=== PATIENT | female | born 1985 | race Caucasian/White ===

== ENCOUNTER 2016-04-23 23:42 | Emergency (ER) | payer OTHER ==
[~2016-04-23] VITALS: Ht 175.3 cm; Wt 119.9 kg
[~2016-04-23 23:42] MED LIST: AMBIEN10 MG PO; BACTRIM,SEPT1 TABLET PO; BUSPAR10 MG PO; CEFTIN500 MG PO; CEPHALEXIN500 MG PO; CIPRO500 MG PO; DIFLUCAN100 MG PO; DIFLUCAN150 MG PO; FIORICET 50-301 EACH PO; FIORICET,ESG1 TABLET PO; Fioricet; HYDROCODON-ACE1 EAC7 PO; HYDROXYZINE HCL50 MG PO; HYDROXYZINE PAM50 MG PO; KEFLEX500 MG PO; KLONOPIN1 MG PO; LAMICTAL25 MG PO; MACROBID100 MG PO; METHADONE10 MG PO; METHADONE10 MG/1 M1 PO; METHADONE5 MG PO; NEURONTIN100 MG PO; ONE-A-DAY ESSE1 EAC1 PO; PERCOCET 5/31 TABLET PO; PYRIDIUM100 MG PO; REGLAN10 MG PO; RITALIN5 MG PO; Ritalin; SERTRALINE HCL100 MG PO; SKELAXIN800 MG PO; TORADOL10 MG PO; TRAMADOL HCL50 MG PO; VICODIN 5-3001 EACH PO; VITAMIN D31000 UNIT PO; ZOFRAN4 MG PO; ZOLOFT100 MG PO; Zoloft
[2016-04-24] MEDS ORDERED: REGLAN10 MG PO (01:07)
[2016-04-24] MEDS ORDERED: FIORICET,ESG1 TABLET PO (01:07)
[2016-04-24 01:29] VITALS: BP 130/80
== END 2016-04-24 01:30 | disposition home or self-care (01) ==
LOC: EME 23:42
DX: G43.909 Migraine, unspecified, not intractable, without status migrainosus (principal)
CPT/HCPCS: 99281; 99283; J1885

== ENCOUNTER 2016-05-09 13:04 | Emergency (ER) | payer OTHER ==
[~2016-05-09] VITALS: Ht 175.3 cm; Wt 116.5 kg
[2016-05-09 13:41] LABS: MCH 26.3 PG (29.0-34.0); MCHC 31.2 G/DL (30.0-36.0); MCV 84.4 FL (83-99); MEAN PLAT.VOLUME 10.1 uM^3 (9.5-12.4); PLATELET COUNT 219 K/uL (156-360); RBC DIS.WIDTH-CV 14.3 % (11.8-14.6); RBC DIS.WIDTH-SD 44.1 % (39-53); RED BLOOD COUNT 4.86 M/uL (3.80-5.20); WHITE BLOOD COUNT 7.9 K/uL (4.1-10.2)
[2016-05-09 13:50] LABS: CHLORIDE 105 mEq/L (99-109); POTASSIUM 4.5 mEq/L (3.7-5.4); SODIUM 137 mEq/L (136-147)
[2016-05-09 13:52] LABS: GLUCOSE 81 mg/dL (70-99)
[2016-05-09 13:53] LABS: ANION GAP 9 MEQ/L (2-14)
[2016-05-09 13:56] LABS: ADD MIUA? YES; BILIRUBIN NEGATIVE; BLOOD NEGATIVE; COLOR YELLOW ((YELLOW)); GLUCOSE (STRIP) NEGATIVE; KETONES NEGATIVE; LEUKOCYTES TRACE; NITRITE NEGATIVE; PROTEIN (STRIP) NEGATIVE; SPECIFIC GRAVITY 1.015 (1.000-1.030); UROBILINOGEN 0.2 MG/DL (0.2-1.0)
[2016-05-09 13:56] LABS: GFR ESTIMATE (CALCULATED) > 59 mL/min/
[2016-05-09 13:57] LABS: UREA NITROGEN (BUN) 10 mg/dL (9-23)
[2016-05-09 14:04] LABS: QUANTITATIVE HCG < 4.0 MIU/ML
[2016-05-09 14:29] LABS: BACTERIA RARE /HPF; EPITHELIAL CELLS 2+ /HPF; HYALINE CASTS 0-5 /LPF; MUCUS TRACE /LPF; RED BLOOD CELLS 0-5 /HPF (0-5); WHITE BLOOD CELLS 0-5 /HPF (0-5)
[2016-05-09 16:17] VITALS: BP 125/90
[2016-05-12 12:39] LABS: CHLAMYDIA TRACHOMATIS NEGATIVE; NEISSERIA GONORRHOEAE NEGATIVE
== END 2016-05-09 16:40 | disposition home or self-care (01) ==
LOC: EME 13:04
PROVIDERS: Nurse Practitioner Family
DX: R10.2 Pelvic and perineal pain (principal); N89.8 Other specified noninflammatory disorders of vagina; Z98.84 Bariatric surgery status; Z87.440 Personal history of urinary (tract) infections; Z87.442 Personal history of urinary calculi; F17.200 Nicotine dependence, unspecified, uncomplicated
CPT/HCPCS: 80048; 81003; 84702; 85027; 87210; 87491; 87591; 99281; 99283; J0696

== ENCOUNTER 2016-07-12 12:56 | Inpatient (IN) | payer OTHER ==
[~2016-07-12] VITALS: Ht 175.3 cm; Wt 110.0 kg
[2016-07-12 13:35] LABS: EOSINOPHIL (%) 0 % (0-5); HEMATOCRIT 40.8 % (36.0-46.0); IMMATURE GRANULOCYTE (%) 0.3 % (0.0-0.7); INSTRUMENT ABS NEUTROPHIL CT 5.8 K/uL; LYMPHOCYTE COUNT 1.3 K/uL (1.0-2.8); MCH 26.5 PG (29.0-34.0); MCHC 31.9 G/DL (30.0-36.0); MCV 83.3 FL (83-99); MEAN PLAT.VOLUME 10.6 uM^3 (9.5-12.4); MONOCYTE (%) 5.4 % (3-12); MONOCYTE COUNT 0.4 K/uL (0-0.8); NEUTROPHIL (%) 77.1 % (45-76); NEUTROPHIL COUNT 5.8 K/uL (1.8-6.4); PLATELET COUNT 216 K/uL (156-360); RBC DIS.WIDTH-CV 16.2 % (11.8-14.6); RBC DIS.WIDTH-SD 48.9 % (39-53); WHITE BLOOD COUNT 7.6 K/uL (4.1-10.2)
[2016-07-12 13:48] LABS: CHLORIDE 105 mEq/L (99-109); POTASSIUM 4.4 mEq/L (3.7-5.4); SODIUM 135 mEq/L (136-147)
[2016-07-12 13:50] LABS: GLUCOSE 202 mg/dL (70-99)
[2016-07-12 13:51] LABS: ANION GAP 11 MEQ/L (2-14)
[2016-07-12 13:53] LABS: SERUM ETHYL ALCOHOL < 10 mg/dL
[2016-07-12 13:54] LABS: GFR ESTIMATE (CALCULATED) > 59 mL/min/
[2016-07-12 13:55] LABS: UREA NITROGEN (BUN) 19 mg/dL (9-23)
[2016-07-12 14:02] LABS: QUANTITATIVE HCG < 4.0 MIU/ML
[2016-07-12 14:32] LABS: ADD MIUA? NO; BILIRUBIN NEGATIVE; BLOOD NEGATIVE; COLOR YELLOW ((YELLOW)); GLUCOSE (STRIP) NEGATIVE; KETONES 80; LEUKOCYTES NEGATIVE; NITRITE NEGATIVE; PROTEIN (STRIP) NEGATIVE; SPECIFIC GRAVITY 1.018 (1.000-1.030); UROBILINOGEN 0.2 MG/DL (0.2-1.0)
[2016-07-12 14:40] LABS: AMPHETAMINE NEGATIVE (500 ng/mL); BARBITURATES NEGATIVE (200 ng/mL); BENZODIAZEPINES NEGATIVE (150 ng/mL); COCAINE NEGATIVE (150 ng/mL); INTERNAL CONTROLS VALID? YES; METHADONE NEGATIVE (200 ng/mL); METHAMPHETAMINE NEGATIVE (500 ng/mL); OPIATES (MORPHINE) NEGATIVE (100 ng/mL); OXYCODONE NEGATIVE (100 ng/mL); PHENCYCLIDINE NEGATIVE (25 ng/mL); PROPOXYPHENE NEGATIVE (300 ng/mL); THC CANNABINOIDS PRESUMPTIVE POSITIVE (50 ng/mL); TRICYCLIC ANTIDEPRESSANTS NEGATIVE (300 ng/mL)
[2016-07-12 14:41] LABS: ADD MEDTOX COMMENT Y
[2016-07-12 15:56] VITALS: BP 133/67
[2016-07-12 16:05] VITALS: BP 133/67
[2016-07-12] MEDS ORDERED: VIVITROL380 MG/3.4 IM (16:14)
[2016-07-12] MEDS ORDERED: KLONOPIN0.5 M1 PO (16:15)
[2016-07-13 07:42] VITALS: BP 126/68
[2016-07-13 15:42] VITALS: BP 105/53
[2016-07-14 07:56] VITALS: BP 112/71
[2016-07-14 15:53] VITALS: BP 97/53
[2016-07-14 18:58] VITALS: BP 125/84
[2016-07-15 07:34] VITALS: BP 122/70
[2016-07-15] MEDS ORDERED: LAMICTAL25 MG PO (09:14)
[2016-07-15] MEDS ORDERED: BUSPAR10 MG PO (09:14)
[2016-07-15] MEDS ORDERED: SERTRALINE HCL100 MG PO (09:14)
[2016-07-15] MEDS ORDERED: VIVITROL380 MG/3.4 IM (09:14)
[2016-07-15] MEDS ORDERED: ATARAX,VISTARIL25 MG PO (10:20)
[2016-07-15] MEDS ORDERED: FIORICET,ESG1 TABLET PO (10:20)
== END 2016-07-15 10:49 | disposition home or self-care (01) | DRG 885 ==
LOC: EME 12:56 → 1WEST 15:01 → EDOF 15:01 → 1WEST 15:52
PROVIDERS: Emergency Medicine
DX: F33.1 Major depressive disorder, recurrent, moderate (principal); R45.851 Suicidal ideations; F41.9 Anxiety disorder, unspecified; Z59.0 Homelessness; F10.10 Alcohol abuse, uncomplicated; F11.20 Opioid dependence, uncomplicated; F12.10 Cannabis abuse, uncomplicated
CPT/HCPCS: 80048; 81003; 84702; 84999; 85025; 90839; 97150 GO; 97165 GO; 99281; 99285; G0480

== ENCOUNTER 2016-08-07 16:23 | Emergency (ER) | payer OTHER ==
[~2016-08-07] VITALS: Ht 175.3 cm; Wt 105.6 kg
[~2016-08-07 16:23] MED LIST changes: +ATARAX,VISTARIL25 MG PO; +KLONOPIN0.5 M1 PO; +VIVITROL380 MG/3.4 IM
[2016-08-07 17:39] LABS: HEMATOCRIT 41.2 % (36.0-46.0); MCH 27.4 PG (29.0-34.0); MCHC 32.8 G/DL (30.0-36.0); MCV 83.6 FL (83-99); MEAN PLAT.VOLUME 9.8 uM^3 (9.5-12.4); PLATELET COUNT 264 K/uL (156-360); RBC DIS.WIDTH-CV 16.5 % (11.8-14.6); RBC DIS.WIDTH-SD 50.4 % (39-53); RED BLOOD COUNT 4.93 M/uL (3.80-5.20); WHITE BLOOD COUNT 8.6 K/uL (4.1-10.2)
[2016-08-07 17:47] LABS: CHLORIDE 101 mEq/L (99-109); POTASSIUM 4.2 mEq/L (3.7-5.4); SODIUM 139 mEq/L (136-147)
[2016-08-07 17:49] LABS: GLUCOSE 81 mg/dL (70-99)
[2016-08-07 17:50] LABS: ANION GAP 15 MEQ/L (2-14)
[2016-08-07 17:52] LABS: SERUM ETHYL ALCOHOL 162 mg/dL
[2016-08-07 17:53] LABS: GFR ESTIMATE (CALCULATED) > 59 mL/min/
[2016-08-07 17:55] LABS: UREA NITROGEN (BUN) 5 mg/dL (9-23)
[2016-08-07 17:56] LABS: SALICYLATE < 5.0 MG/DL (15-30)
[2016-08-07 18:04] LABS: QUANTITATIVE HCG < 4.0 MIU/ML
[2016-08-07 18:44] LABS: ADD MEDTOX COMMENT Y; AMPHETAMINE NEGATIVE (500 ng/mL); BARBITURATES NEGATIVE (200 ng/mL); BENZODIAZEPINES NEGATIVE (150 ng/mL); COCAINE PRESUMPTIVE POSITIVE (150 ng/mL); INTERNAL CONTROLS VALID? YES; METHADONE NEGATIVE (200 ng/mL); METHAMPHETAMINE NEGATIVE (500 ng/mL); OPIATES (MORPHINE) NEGATIVE (100 ng/mL); OXYCODONE NEGATIVE (100 ng/mL); PHENCYCLIDINE NEGATIVE (25 ng/mL); PROPOXYPHENE NEGATIVE (300 ng/mL); THC CANNABINOIDS NEGATIVE (50 ng/mL); TRICYCLIC ANTIDEPRESSANTS NEGATIVE (300 ng/mL)
[2016-08-07] MEDS ORDERED: ATIVAN1 MG PO (21:21)
[2016-08-07 22:15] VITALS: BP 126/86
== END 2016-08-07 22:18 | disposition home or self-care (01) ==
LOC: EME 16:23
PROVIDERS: Physician Assistant
DX: F10.20 Alcohol dependence, uncomplicated (principal); F33.1 Major depressive disorder, recurrent, moderate; Z59.0 Homelessness; F17.200 Nicotine dependence, unspecified, uncomplicated; Z88.5 Allergy status to narcotic agent; Z98.84 Bariatric surgery status
CPT/HCPCS: 80048; 84702; 84999; 85027; 90839; 99281; 99284; G0480

== ENCOUNTER 2016-08-25 15:38 | Emergency (ER) | payer OTHER ==
[~2016-08-25] VITALS: Ht 175.3 cm; Wt 80.0 kg
[~2016-08-25 15:38] MED LIST changes: +ATIVAN1 MG PO
[2016-08-25 16:45] LABS: AMPHETAMINE NEGATIVE (500 ng/mL); BARBITURATES NEGATIVE (200 ng/mL); BENZODIAZEPINES NEGATIVE (150 ng/mL); COCAINE NEGATIVE (150 ng/mL); INTERNAL CONTROLS VALID? YES; METHADONE NEGATIVE (200 ng/mL); METHAMPHETAMINE NEGATIVE (500 ng/mL); OPIATES (MORPHINE) NEGATIVE (100 ng/mL); OXYCODONE NEGATIVE (100 ng/mL); PHENCYCLIDINE NEGATIVE (25 ng/mL); PROPOXYPHENE NEGATIVE (300 ng/mL); THC CANNABINOIDS NEGATIVE (50 ng/mL); TRICYCLIC ANTIDEPRESSANTS NEGATIVE (300 ng/mL)
[2016-08-25 16:53] LABS: HEMATOCRIT 39.2 % (36.0-46.0); MCH 27.3 PG (29.0-34.0); MCHC 32.4 G/DL (30.0-36.0); MCV 84.3 FL (83-99); MEAN PLAT.VOLUME 9.4 uM^3 (9.5-12.4); PLATELET COUNT 257 K/uL (156-360); RBC DIS.WIDTH-CV 15.7 % (11.8-14.6); RBC DIS.WIDTH-SD 48.4 % (39-53); RED BLOOD COUNT 4.65 M/uL (3.80-5.20); WHITE BLOOD COUNT 6.5 K/uL (4.1-10.2)
[2016-08-25 17:01] LABS: CHLORIDE 104 mEq/L (99-109); POTASSIUM 4.5 mEq/L (3.7-5.4); SODIUM 140 mEq/L (136-147)
[2016-08-25 17:03] LABS: GLUCOSE 97 mg/dL (70-99)
[2016-08-25 17:05] LABS: ANION GAP 13 MEQ/L (2-14)
[2016-08-25 17:06] LABS: SERUM ETHYL ALCOHOL 181 mg/dL
[2016-08-25 17:07] LABS: GFR ESTIMATE (CALCULATED) > 59 mL/min/
[2016-08-25 17:08] LABS: UREA NITROGEN (BUN) 6 mg/dL (9-23)
[2016-08-25 18:02] LABS: QUANTITATIVE HCG 35.1 MIU/ML
[2016-08-25 21:33] VITALS: BP 112/61
== END 2016-08-25 21:33 | disposition home or self-care (01) ==
LOC: EME 15:38
PROVIDERS: Emergency Medicine
DX: F33.1 Major depressive disorder, recurrent, moderate (principal); R79.89 Other specified abnormal findings of blood chemistry; F10.99 Alcohol use, unspecified with unspecified alcohol-induced disorder; Y90.6 Blood alcohol level of 120-199 mg/100 ml; Z98.84 Bariatric surgery status; F17.200 Nicotine dependence, unspecified, uncomplicated
CPT/HCPCS: 80048; 84702; 84702 90; 85027; 90837; 99281; 99285; G0480

== ENCOUNTER 2016-08-28 01:27 | Emergency (ER) | payer OTHER ==
[~2016-08-28] VITALS: Ht 175.3 cm; Wt 109.9 kg
[2016-08-28 02:11] VITALS: BP 119/91
== END 2016-08-28 02:16 | disposition left against medical advice (07) ==
LOC: EME → EDBD 01:27 → EME 01:27
DX: F10.129 Alcohol abuse with intoxication, unspecified (principal); Z88.6 Allergy status to analgesic agent; Z87.442 Personal history of urinary calculi; F17.200 Nicotine dependence, unspecified, uncomplicated
CPT/HCPCS: 99281; 99283

== ENCOUNTER 2016-09-02 21:24 | Emergency (ER) | payer OTHER | END 2016-09-02 21:58 | disposition left against medical advice (07) | LOC: EME 21:24 | DX: R10.9 Unspecified abdominal pain (principal); Z53.21 Procedure and treatment not carried out due to patient leaving prior to being seen by health care provider ==

== ENCOUNTER 2016-10-03 17:13 | Emergency (ER) | payer OTHER ==
[~2016-10-03] VITALS: Ht 175.3 cm; Wt 11.5 kg
[2016-10-03 17:56] LABS: CHLORIDE 105 mEq/L (99-109); POTASSIUM 4.2 mEq/L (3.7-5.4); SODIUM 137 mEq/L (136-147)
[2016-10-03 17:58] LABS: GLUCOSE 90 mg/dL (70-99)
[2016-10-03 17:59] LABS: ANION GAP 7 MEQ/L (2-14)
[2016-10-03 18:01] LABS: GFR ESTIMATE (CALCULATED) > 59 mL/min/
[2016-10-03 18:02] LABS: UREA NITROGEN (BUN) 7 mg/dL (9-23)
[2016-10-03 18:28] LABS: QUANTITATIVE HCG 81148.9 MIU/ML
[2016-10-03 19:11] LABS: HEMATOCRIT 42.5 % (36.0-46.0); MCH 26.9 PG (29.0-34.0); MCHC 31.5 G/DL (30.0-36.0); MCV 85.3 FL (83-99); MEAN PLAT.VOLUME 10.6 uM^3 (9.5-12.4); PLATELET COUNT 248 K/uL (156-360); RBC DIS.WIDTH-CV 16.3 % (11.8-14.6); RBC DIS.WIDTH-SD 51.6 % (39-53); RED BLOOD COUNT 4.98 M/uL (3.80-5.20); WHITE BLOOD COUNT 8.2 K/uL (4.1-10.2)
[2016-10-03 20:41] VITALS: BP 118/84
[2016-10-04] MEDS ORDERED: PERCOCET 5/31 TABLET PO (18:05)
== END 2016-10-03 20:41 | disposition home or self-care (01) ==
LOC: EME 17:13
PROVIDERS: Physician Assistant Medical
DX: O20.8 Other hemorrhage in early pregnancy (principal); O20.0 Threatened abortion; Z3A.08 8 weeks gestation of pregnancy; O99.331 Smoking (tobacco) complicating pregnancy, first trimester; F17.200 Nicotine dependence, unspecified, uncomplicated; O99.841 Bariatric surgery status complicating pregnancy, first trimester; Z87.442 Personal history of urinary calculi
CPT/HCPCS: 76801; 80048; 84702; 85027; 86900; 86901; 99281; 99283

== ENCOUNTER 2016-10-04 12:18 | Emergency (ER) | payer OTHER ==
[~2016-10-04] VITALS: Ht 175.3 cm; Wt 118.5 kg
[2016-10-04 12:40] LABS: HEMATOCRIT 40.7 % (36.0-46.0); MCH 26.5 PG (29.0-34.0); MCHC 31.2 G/DL (30.0-36.0); MEAN PLAT.VOLUME 10.1 uM^3 (9.5-12.4); PLATELET COUNT 245 K/uL (156-360); RBC DIS.WIDTH-CV 16.4 % (11.8-14.6); RBC DIS.WIDTH-SD 51.3 % (39-53); RED BLOOD COUNT 4.79 M/uL (3.80-5.20); WHITE BLOOD COUNT 10.5 K/uL (4.1-10.2)
[2016-10-04 13:22] LABS: QUANTITATIVE HCG 51242.6 MIU/ML
[2016-10-04 13:46] LABS: CHLORIDE 106 mEq/L (99-109); POTASSIUM 4.1 mEq/L (3.7-5.4); SODIUM 138 mEq/L (136-147)
[2016-10-04 13:48] LABS: GLUCOSE 97 mg/dL (70-99)
[2016-10-04 13:49] LABS: ANION GAP 9 MEQ/L (2-14)
[2016-10-04 13:50] LABS: TOTAL BILIRUBIN 0.2 mg/dL (0.0-1.0)
[2016-10-04 13:52] LABS: ALKALINE PHOSPHATASE 46 IU/L (3-129); GFR ESTIMATE (CALCULATED) > 59 mL/min/
[2016-10-04 13:53] LABS: UREA NITROGEN (BUN) 8 mg/dL (9-23)
[2016-10-04 14:20] LABS: ADD MIUA? YES; BILIRUBIN NEGATIVE; BLOOD LARGE; COLOR YELLOW ((YELLOW)); GLUCOSE (STRIP) NEGATIVE; KETONES NEGATIVE; LEUKOCYTES TRACE; NITRITE NEGATIVE; PROTEIN (STRIP) 30; SPECIFIC GRAVITY 1.014 (1.000-1.030); UROBILINOGEN 0.2 MG/DL (0.2-1.0)
[2016-10-04 14:36] LABS: BACTERIA 1+ /HPF; EPITHELIAL CELLS 2+ /HPF; MUCUS NONE SEEN /LPF; RED BLOOD CELLS TNTC /HPF (0-5); UCUL ADDED? YES; WHITE BLOOD CELLS 0-5 /HPF (0-5)
[2016-10-04] MEDS ORDERED: PERCOCET 5/31 TABLET PO (18:05)
[2016-10-04 18:40] VITALS: BP 108/73
== END 2016-10-04 18:55 | disposition home or self-care (01) ==
LOC: EME 12:18
DX: O03.9 Complete or unspecified spontaneous abortion without complication (principal); Z98.84 Bariatric surgery status; F17.200 Nicotine dependence, unspecified, uncomplicated
CPT/HCPCS: 76801; 80053; 81003; 84702; 85027; 87086; 99281; 99285; J1885; J3010

== ENCOUNTER 2016-10-28 13:42 | Emergency (ER) | payer OTHER ==
[~2016-10-28] VITALS: Ht 175.3 cm; Wt 113.6 kg
[2016-10-28] MEDS ORDERED: LORTAB 5-325 M1 EACH PO (16:29)
[2016-10-28 16:52] VITALS: BP 154/68
== END 2016-10-28 16:54 | disposition home or self-care (01) ==
LOC: EME 13:42
PROC: 2W3LX1Z Immobilization of Right Lower Extremity using Splint (ICD-10-PCS; principal; 2016-10-28)
DX: S92.351A Displaced fracture of fifth metatarsal bone, right foot, initial encounter for closed fracture (principal); W10.9XXA Fall (on) (from) unspecified stairs and steps, initial encounter; F17.200 Nicotine dependence, unspecified, uncomplicated
CPT/HCPCS: 73630; 99281; 99284

== ENCOUNTER 2016-11-02 10:25 | Emergency (ER) | payer OTHER ==
[~2016-11-02] VITALS: Ht 175.3 cm; Wt 104.6 kg
[~2016-11-02 10:25] MED LIST changes: +LORTAB 5-325 M1 EACH PO
[2016-11-02] MEDS ORDERED: MOTRIN600 MG PO (12:53)
[2016-11-02] MEDS ORDERED: ROXICODONE5 MG PO (12:53)
[2016-11-02 12:58] VITALS: BP 118/74
== END 2016-11-02 12:58 | disposition home or self-care (01) ==
LOC: EME 10:25
DX: S92.354A Nondisplaced fracture of fifth metatarsal bone, right foot, initial encounter for closed fracture (principal); X58.XXXA Exposure to other specified factors, initial encounter; Y93.E1 Activity, personal bathing and showering; F17.200 Nicotine dependence, unspecified, uncomplicated
CPT/HCPCS: 73630; 99281; 99283

== ENCOUNTER 2016-11-09 18:44 | Emergency (ER) | payer OTHER ==
[~2016-11-09] VITALS: Ht 175.3 cm; Wt 109.1 kg
[~2016-11-09 18:44] MED LIST changes: +MOTRIN600 MG PO; +ROXICODONE5 MG PO
[2016-11-09 20:26] LABS: EOSINOPHIL (%) 1.5 % (0-5); EOSINOPHIL COUNT 0.1 K/uL (0-0.3); HEMATOCRIT 35.8 % (36.0-46.0); IMMATURE GRANULOCYTE (%) 0.2 % (0.0-0.7); INSTRUMENT ABS NEUTROPHIL CT 5.9 K/uL; LYMPHOCYTE COUNT 1.9 K/uL (1.0-2.8); MCH 25.1 PG (29.0-34.0); MCHC 31.3 G/DL (30.0-36.0); MCV 80.3 FL (83-99); MEAN PLAT.VOLUME 10.7 uM^3 (9.5-12.4); MONOCYTE (%) 7.9 % (3-12); MONOCYTE COUNT 0.7 K/uL (0-0.8); NEUTROPHIL (%) 67.8 % (45-76); NEUTROPHIL COUNT 5.9 K/uL (1.8-6.4); NRBC (%) 0.2 /100 WBC (0-0); PLATELET COUNT 269 K/uL (156-360); RBC DIS.WIDTH-CV 16.4 % (11.8-14.6); RBC DIS.WIDTH-SD 47.9 % (39-53); RED BLOOD COUNT 4.46 M/uL (3.80-5.20); WHITE BLOOD COUNT 8.6 K/uL (4.1-10.2)
[2016-11-09 20:42] LABS: ADD MEDTOX COMMENT Y; AMPHETAMINE NEGATIVE (500 ng/mL); BARBITURATES NEGATIVE (200 ng/mL); BENZODIAZEPINES NEGATIVE (150 ng/mL); COCAINE PRESUMPTIVE POSITIVE (150 ng/mL); INTERNAL CONTROLS VALID? YES; METHADONE NEGATIVE (200 ng/mL); METHAMPHETAMINE NEGATIVE (500 ng/mL); OPIATES (MORPHINE) NEGATIVE (100 ng/mL); OXYCODONE PRESUMPTIVE POSITIVE (100 ng/mL); PHENCYCLIDINE NEGATIVE (25 ng/mL); PROPOXYPHENE NEGATIVE (300 ng/mL); THC CANNABINOIDS NEGATIVE (50 ng/mL); TRICYCLIC ANTIDEPRESSANTS NEGATIVE (300 ng/mL)
[2016-11-09] MEDS ORDERED: KLONOPIN0.5 M1 PO (20:49)
[2016-11-09 20:58] LABS: QUANTITATIVE HCG < 4.0 MIU/ML
[2016-11-09 21:07] LABS: CHLORIDE 107 mEq/L (99-109); POTASSIUM 4.1 mEq/L (3.7-5.4); SODIUM 140 mEq/L (136-147)
[2016-11-09 21:09] LABS: GLUCOSE 66 mg/dL (70-99)
[2016-11-09 21:11] LABS: ANION GAP 8 MEQ/L (2-14)
[2016-11-09 21:12] LABS: SERUM ETHYL ALCOHOL 102 mg/dL
[2016-11-09 21:13] LABS: GFR ESTIMATE (CALCULATED) > 59 mL/min/
[2016-11-09 21:14] LABS: UREA NITROGEN (BUN) 8 mg/dL (9-23)
[2016-11-10] MEDS ORDERED: LIBRIUM25 MG PO (00:48)
[2016-11-10 00:53] VITALS: BP 130/78
== END 2016-11-10 00:57 | disposition home or self-care (01) ==
LOC: EME 18:44
PROVIDERS: Emergency Medicine
DX: F10.24 Alcohol dependence with alcohol-induced mood disorder (principal); F19.10 Other psychoactive substance abuse, uncomplicated; Y90.5 Blood alcohol level of 100-119 mg/100 ml; Z59.0 Homelessness; F17.200 Nicotine dependence, unspecified, uncomplicated; Z87.442 Personal history of urinary calculi; Z87.440 Personal history of urinary (tract) infections; Z98.84 Bariatric surgery status; Z88.6 Allergy status to analgesic agent
CPT/HCPCS: 80048; 84702; 84999; 85025; 90839; 99281; 99285; G0480

== ENCOUNTER 2017-08-03 13:47 | Emergency (ER) | payer OTHER ==
[~2017-08-03] VITALS: Ht 175.3 cm; Wt 127.0 kg
[~2017-08-03 13:47] MED LIST changes: +LIBRIUM25 MG PO
[2017-08-03 13:50] VITALS: BP 111/81
[2017-08-03 14:48] LABS: AMPHETAMINE NEGATIVE (500 ng/mL); BARBITURATES NEGATIVE (200 ng/mL); BENZODIAZEPINES PRESUMPTIVE POSITIVE (150 ng/mL); BUPRENORPHINE NEGATIVE (10 ng/mL); COCAINE PRESUMPTIVE POSITIVE (150 ng/mL); METHADONE NEGATIVE (200 ng/mL); METHAMPHETAMINE NEGATIVE (500 ng/mL); OPIATES (MORPHINE) NEGATIVE (100 ng/mL); OXYCODONE NEGATIVE (100 ng/mL); PHENCYCLIDINE NEGATIVE (25 ng/mL); PROPOXYPHENE NEGATIVE (300 ng/mL); THC CANNABINOIDS NEGATIVE (50 ng/mL); TRICYCLIC ANTIDEPRESSANTS NEGATIVE (300 ng/mL)
[2017-08-03 15:21] LABS: BENZODIAZEPINES, URINE SCREEN POSITIVE (200 ng/mL)
== END 2017-08-03 15:37 | disposition left against medical advice (07) ==
LOC: EME 13:47
PROVIDERS: Emergency Medicine
DX: F19.10 Other psychoactive substance abuse, uncomplicated (principal); F41.9 Anxiety disorder, unspecified; F32.9 Major depressive disorder, single episode, unspecified; F98.8 Other specified behavioral and emotional disorders with onset usually occurring in childhood and adolescence; F17.200 Nicotine dependence, unspecified, uncomplicated; Z98.84 Bariatric surgery status; Z87.442 Personal history of urinary calculi; Z87.440 Personal history of urinary (tract) infections; Z98.890 Other specified postprocedural states; Z88.6 Allergy status to analgesic agent; Z88.5 Allergy status to narcotic agent; Z88.8 Allergy status to other drugs, medicaments and biological substances
CPT/HCPCS: 80053; 84999; 85027; 99281; 99284; G0480

== ENCOUNTER 2017-09-03 13:40 | Emergency (ER) | payer OTHER ==
[~2017-09-03] VITALS: Ht 175.3 cm; Wt 121.0 kg
[2017-09-03 14:31] LABS: HEMATOCRIT 34.2 % (36.0-46.0); HEMOGLOBIN 10.3 G/DL (11.9-15.5); MCHC 30.1 G/DL (30.0-36.0); MCV 72.9 FL (83-99); PLATELET COUNT 278 K/uL (156-360); RBC DIS.WIDTH-CV 16.6 % (11.8-14.6); RBC DIS.WIDTH-SD 42.7 % (39-53); RED BLOOD COUNT 4.69 M/uL (3.80-5.20); WHITE BLOOD COUNT 7.3 K/uL (4.1-10.2)
[2017-09-03 14:34] LABS: ALBUMIN 4.2 g/dL (3.2-4.8); CHLORIDE 106 mEq/L (99-109); POTASSIUM 4.2 mEq/L (3.7-5.4); SODIUM 142 mEq/L (136-147)
[2017-09-03 14:36] LABS: GLUCOSE 108 mg/dL (70-99); TOTAL PROTEIN 7.2 g/dL (6.4-8.3)
[2017-09-03 14:38] LABS: TOTAL BILIRUBIN 0.2 mg/dL (0.0-1.0)
[2017-09-03 14:40] LABS: ALKALINE PHOSPHATASE 64 IU/L (3-129); CREATININE 1.4 mg/dL (0.6-1.3); GFR ESTIMATE (CALCULATED) 46 mL/min/
[2017-09-03 14:41] LABS: UREA NITROGEN (BUN) 8 mg/dL (9-23)
[2017-09-03 14:42] LABS: AST (GOT) 17 IU/L (2-34)
[2017-09-03 14:43] LABS: ALT (GPT) 10 IU/L (3-49)
[2017-09-03 14:54] LABS: QUANTITATIVE HCG < 4.0 MIU/ML
[2017-09-03] MEDS ORDERED: AUGMENTIN875 MG PO (15:22)
[2017-09-03] MEDS ORDERED: BENTYL10 MG PO (15:22)
[2017-09-03] MEDS ORDERED: ZOFRAN ODT4 MG PO (15:22)
[2017-09-03] MEDS ORDERED: FLONASE16 G1 BOTH NARES (15:28)
[2017-09-03 16:00] VITALS: BP 114/53
== END 2017-09-03 16:21 | disposition home or self-care (01) ==
LOC: EME 13:40
PROVIDERS: Nurse Practitioner Family
DX: J32.9 Chronic sinusitis, unspecified (principal); B34.9 Viral infection, unspecified; F17.200 Nicotine dependence, unspecified, uncomplicated; F32.9 Major depressive disorder, single episode, unspecified; F41.9 Anxiety disorder, unspecified; Z98.84 Bariatric surgery status; Z87.440 Personal history of urinary (tract) infections; Z88.5 Allergy status to narcotic agent; Z88.6 Allergy status to analgesic agent
CPT/HCPCS: 71046; 74018; 80053; 81003; 84702; 85027; J1885; J7030